=== PATIENT | male | born 1985 | race Caucasian/White ===

== ENCOUNTER 2018-07-25 07:56 | Emergency (ER) | payer SELFPAY ==
[2018-07-25 10:00] VITALS: BP 126/77
== END 2018-07-25 10:10 | disposition home or self-care (01) | DRG 923 ==
LOC: ED 07:56
DX: T69.022A Immersion foot, left foot, initial encounter (principal); T69.021A Immersion foot, right foot, initial encounter; F19.90 Other psychoactive substance use, unspecified, uncomplicated; X39.8XXA Other exposure to forces of nature, initial encounter; Y93.89 Activity, other specified; Y92.828 Other wilderness area as the place of occurrence of the external cause

== ENCOUNTER 2018-07-25 18:57 | Emergency (ER) | payer SELFPAY | END 2018-07-25 19:07 | disposition left against medical advice (07) | DRG 951 | LOC: ED 18:57 → LWOBS 19:07 | DX: Z91.19 Patient's noncompliance with other medical treatment and regimen (principal) ==